=== PATIENT | male | born 1955 | race Caucasian/White ===

== ENCOUNTER 2016-09-11 03:03 | Inpatient (IN) | payer OTHER ==
[~2016-09-11] VITALS: Ht 193 cm; Wt 140.6 kg
[~2016-09-11 03:03] MED LIST: ATORVASTATIN CA40 M1 PO; LISINOPRIL20 M1 PO; ST. JOSEPH ASPI81 M1 PO; TOPROL XL25 M1 PO
--- NOTE | 2016-09-11 16:06 | Admission Core Measures ---
Admission Meds I reviewed the following Meds: Current Medications Sig/Vu Start time Last Medication Dose Stop Time Status Admin Acetaminophen 975 MG ONCE 09/11 0000 NR (Tylenol) 09/11 2358 Atorvastatin Calcium 40 MG DAILY 09/12 1000 UNVr (Lipitor) Cefazolin Sodium 3,000 MG ONCE 09/11 0000 NR (Kefzol-Ancef Inj) 09/11 235 Lisinopril 20 MG DAILY 09/12 1000 UNVr (Prinivil) Metoprolol Succinate 25 MG DAILY 09/12 1000 UNVr (Toprol XL) Oxycodone HCl 10 MG ONCE 09/11 0000 NR (Roxicodone) 09/11 235 Ropivacaine 500 ML ONCE ONE 09/11 1545 AC (NAROPIN) 09/13 0924 ON-Q Ball 1 BAG Acute Coronary Syndrome Inclusion Criteria ACS Diagnosis No Inpatient Core Measures LDL Reminder: If No, please order W/I first 24hr of stay Congestive Heart Failure Inclusion Criteria CHF Diagnosis No Cerebrovascular accident Inclusion Criteria CVA/TIA Diagnosis No Inpatient Core Measures Bedside Swallow Eval Reminder: If BSE failed, place ST order Antithrombotic Reminder: Order Antithrombotic Medication by end of day 2 Antithrombotic Reminder: Document Reason Antithrombotic Not ordered by end of day 2 AFIB/Flutter Reminder: If Present, add to problem list AFIB/Flutter Reminder: Order Anticoag Medication for pts with AFIB/Flutter Atherosclerosis Reminder: If Present, add to problem list LDL Reminder: If No, please order W/I first 24hr of stay PT Order Reminder: If No, please order Venous thromboembolism Inpatient Core Measures VTE Risk Factors: Surgery No [facility] VTE prophylaxis d/t No contraindications No VTE Pharm Prophylaxis d/t No contraindications Inclusion Criteria - Per Current guidelines, there needs to be overlap - treatment for the first 5 days of Warfarin therapy. - Parenteral Anticoagulation (IV or SC) needs to be - given along with Warfarin therapy. VTE Diagnosis No VTE Type NONE VTE Confirmed by (Test) NONE Problem List As ranked by this Provider includes Assessment & Plan 1. Unilateral primary osteoarthritis, right knee HOME MEDS Home Med List Aspirin ([place] Aspirin) 81 MG TABLET.DR 1 TAB PO D HEART [employer] ( Reported) Atorvastatin Calcium 40 MG TABLET 1 TAB PO DAILY CHOLESTEROL (Reported) Lisinopril 20 MG TABLET 1 TAB PO DAILY BP (Reported) Metoprolol Succ XL (Toprol XL) 25 MG TAB 1 TAB PO DAILY BP (Reported)
--- NOTE | 2016-09-11 16:32 | Operative Report ---
Operative/Inv Procedure Report Surgery Date: 09/11/16 Name of Procedure: 1. Right total knee replacement 2. Left knee cortisone injection Pre-Operative Diagnosis: Primary Bilateral knee DJD Post-Operative Diagnosis: Same Estimated Blood Loss: 50ml to 100ml Surgeon/Construction Plant Operator: ELOINA GARRISON,ERIKA Handley Anesthesia: block Operative/Procedure Note Note: Description of Procedure: The patient was taken to the operating room and positively identified. After induction of spinal anesthesia and administration of appropriate pre-operative antibiotics, the patient was positioned supine on the operating room table and all bony prominences were well padded. The left knee was prepped sterilely and injected with a mixture of 2 mL of Depo- Medrol and 8 mL of half percent Marcaine. A Band-Aid was placed over the injection site. Attention was then turned to the right lower extremity. A well-padded pneumatic tourniquet was placed on the right upper thigh. After performing a surgical timeout, the right lower extremity was prepped and draped in the usual sterile fashion. After exsanguination with Esmarch the tourniquet was inflated to 250mm of mercury. A standard medial parapatellar approach was made to the knee. This was carried down through skin and subcutaneous tissue to the level of the fascia. Meticulous hemostasis was maintained with Bovie electrocautery. The extensor mechanism and patellar retinaculum were opened sharply and the patella was everted. The infrapatellar fat was resected in order to improve exposure. Osteophytes were trimmed from the patella and femoral condyles and the patella was re-everted and tucked laterally. A medial release was performed and the cruciate ligaments were resected. The tibia was then subluxed anteriorly. Utilizing the appropriate extra-medullary guide, the proximal tibia was trimmed perpendicular to the long axis of the tibial shaft. Attention was then turned to the femur. After opening the medullary canal, the distal femoral cut was made in 6 degrees of valgus utilizing the appropriate intra-medullary guide. The extension gap was checked and found to be appropriate. The femur was then sized and the remainder of the femoral cuts were made with a size 6 4-in-1 femoral cutting guide. The flexion gap was checked and found to be symmetric and appropriate. The knee was then trialed with a size 6 femoral component, a size 7 tibial component and a size 9 mm polyethylene insert. The patella was trimmed to accept an A 38 patella. This yielded excellent range of motion, stability and patellar tracking. All trial components were removed and the knee was copiously irrigated with sterile saline. All components were cemented into place with Edgardo Simplex cement. All the components were of the [employer] Triathlon knee system of the above stated sizes. The knee was again irrigated after cementation. The extensor mechanism and patellar retinaculum were repaired using interrupted #1 vicryl suture. The skin was re-approximated with 2-0 vicryl and closed with lana. A sterile dressing was applied, the tourniquet was deflated, the patient was awakened and taken to the recovery room in satisfactory condition.
[2016-09-11 17:53] VITALS: BP 132/72
--- NOTE | 2016-09-11 18:00 | NUR ---
ARRIVED TO FLOOR VIA STRETCHER. A & O X 3. ON RA. VSS. C/O MILD PAIN 5/10 TO RIGHT KNEE BUT STATES HE FEELS SIGNIFICANT RELIEF SINCE INSERTION ON ON-Q PUMP. STATES PAIN IS TOLERABLE AND DENIES NEED FOR ADDITIONAL MEDICATIONS. POST OP DSG TO RLE C/D/I. ORIENTED TO CALL SYSTEM.
--- NOTE | 2016-09-11 18:07 | PN- Orthopedic ---
Subjective Subjective: POST-OP NOTE: Feels comfortable at the moment. Pain improves with medication. Not yet out of bed. Hasn't been seen by PT yet. Tolerating clears. No nausea. Eager to eat. Denies dizziness. No shortness of breath. No chest pains. Voided 500 mls in pacu. Objective Vital Signs and I&Os Vital Signs Date Time Temp Pulse Resp B/P B/P Pulse O2 O2 Flow FiO2 Mean Ox Delivery Rate 09/11 1753 94.1 65 18 132/72 95 Room Air Physical Exam: General - alert & oriented x 3. comfortable. no acute distress. Lungs - clear bilaterally. no w/r/r. Cardiac - s1s2. reg. Abdomen - soft. nontender. Extremities - right leg dressing c/d/i. on q in place. calves soft and nontender b/l. nvi. no drains. Current Medications: Current Medications Sig/Vu Start time Last Medication Dose Route Stop Time Status Admin Acetaminophen 650 MG Q4P PRN 09/11 1745 UNVr PO Acetaminophen 0 .STK-MED ONE 09/11 1217 DC PO Acetaminophen 975 MG ONCE 09/11 0000 DC PO 09/11 2359 Aspirin 325 MG BID 09/11 2200 UNVr PO Atorvastatin Calcium 40 MG 1700 09/12 1700 UNVr PO Atorvastatin Calcium 40 MG 1700 09/11 1700 DC PO Cefazolin Sodium 2 GM IQ8 09/11 1600 UNVr N/A 1 UNIT IV 09/12 0029 Cefazolin Sodium 3,000 MG ONCE 09/11 0000 DC IV 09/11 2359 Dextrose/Sodium 1,000 ML .[id number] 09/11 174 UNVr 09/11 Chloride IV 1806 Docusate Sodium 100 MG BID 09/11 2200 UNVr PO Hydromorphone HCl 2 MG Q4P PRN 09/11 1745 UNVr PO Hydromorphone HCl 4 MG Q4P PRN 09/11 1745 UNVr PO Ketorolac 15 MG Q8P PRN 09/11 1745 UNVr Tromethamine IV 09/14 174 Lisinopril 20 MG DAILY 09/12 1000 DC PO Lisinopril 20 MG DAILY 09/12 1000 AC PO Metoprolol Succinate 25 MG DAILY 09/12 1000 DC PO Metoprolol Succinate 25 MG DAILY 09/12 1000 AC PO Morphine Sulfate 2 MG Q2P PRN 09/11 1745 AC IV Omeprazole 20 MG DAILY AC 09/12 0700 AC PO Ondansetron HCl 4 MG Q6P PRN 09/11 1745 AC IV Oxycodone HCl 0 .STK-MED ONE 09/11 1217 DC PO Oxycodone HCl 10 MG ONCE 09/11 0000 DC PO 09/11 2359 Polyethylene Glycol 17 GM DAILY 09/12 1000 AC PO Promethazine HCl 12.5 MG Q6P PRN 09/11 1745 AC IV 09/18 1559 Ropivacaine 500 ML ONCE ONE 09/11 1545 DC ON-Q Ball 1 BAG INJ 09/13 0924 Assessment/Plan Assessment/Plan This 61 year old male with hx htn and hld is POD#0 s/p right total knee replacementt, left knee cortisone injection for primary bilateral knee DJD advance diet as tolerated pain control as ordered jorge l-operative ancef x 2 asa bid PT eval in am home meds re-ordered, including beta jose antonio f/u am labs dressing change post-op day#2 will d/w Core Measures/Miscellaneous Venous Thromboembolism VTE Risk Factors: Age > 40, Surgery VTE Contraindications: No Contraindications VTE Diagnosis: No VTE Type: NONE VTE Confirmed by (Test): NONE Beta Jose Antonio Is Beta Jose Antonio a Home Med? Yes If Yes, Was This Ordered Today? Yes Antibiotics Is Patient on Antibiotics? Yes If Yes: prophylaxis
[2016-09-11 20:00] VITALS: BP 138/72
[2016-09-11] MEDS ORDERED: COLACE100 M1 PO (20:16)
[2016-09-11] MEDS ORDERED: MS CONTIN30 M1 PO (20:16)
[2016-09-11] MEDS ORDERED: ASPIRIN EC325 M2 PO (20:16)
[2016-09-11] MEDS ORDERED: MIRALAX17 G1 PO (20:16)
[2016-09-11] MEDS ORDERED: DILAUDID2 M1 PO (20:16)
--- NOTE | 2016-09-11 20:21 | Patient Discharge Instructions ---
Discharge Instructions General Discharge Information You were seen/treated for: Primary Bilateral knee DJD You had these procedures: Right total knee replacement, Left knee cortisone injection Watch for these problems: fever>101.3, increased pain, redness/swelling/drainage, shortness of breath, chest pain, dizziness Do not soak the wound: Yes No bath, but you may shower: Yes Other wound care: see pre-printed sheet Diet Continue normal diet: Yes Recommended Diet: Regular Activity Activity Self Limited: Yes Activity Limited to: Weight bear as tolerated Other activity limits: Rolling walker assistance as needed. Continue PT. Acute Coronary Syndrome Inclusion Criteria At DC or during hospital stay patient has or had the following: ACS DIAGNOSIS No Discharge Core Measures Meds if any: Prescribed or Continued at Discharge Meds if any: NOT Prescribed or Continued at Discharge Congestive Heart Failure Inclusion Criteria At DC or during hospital stay patient has or had the following: CHF DIAGNOSIS No Discharge Core Measures Meds if any: Prescribed or Continued at Discharge Meds if any: NOT Prescribed or Continued at Discharge Cerebrovascular accident Inclusion Criteria At DC or during hospital stay patient has or had the following: CVA/TIA Diagnosis No Discharge Core Measures Meds if any: Prescribed or Continued at Discharge Meds if any: NOT Prescribed or Continued at Discharge Venous thromboembolism Inclusion Criteria VTE Diagnosis No VTE Type NONE VTE Confirmed by (Test) NONE Discharge Core Measures - Per Current guidelines, there needs to be overlap - treatment for the first 5 days of Warfarin therapy. - If discharged on Warfarin prior to 5 days of - overlap therapy, the patient will need to be - assessed for post discharge needs including - *Post discharge parental anticoagulation - *Warfarin and/or parental anticoagulation education - *Follow up date to check INR post discharge At least 5 days overlap therapy as Inpatient No Meds if any: Prescribed or Continued at Discharge Note: Overlap Therapy is Warfarin and Anticoagulant Meds if any: NOT Prescribed or Continued at Discharge
--- NOTE | 2016-09-11 20:26 | Surgical Discharge Summary ---
Visit Information Visit Dates Admission Date: 09/11/16 Discharge Date: 09/13/16 History of Present Illness Chief Complaint: Bilateral knee pain, osteoarthritis Medical History Blood Transfusion Hx: No Neurological: NONE EENT: NONE Cardiovascular: CAD, hypertension, hyperlipidemia Respiratory: obstructive sleep apnea Gastrointestinal: NONE Hepatic: NONE Renal: NONE Musculoskeletal: osteoarthritis Psychiatric: NONE Endocrine: NONE Blood Disorders: NONE Cancer(s): NONE FOCUSER/Reproductive: NONE Isolation History: Standard Surgical History Pertinent Surgical History: CARDIAC STENT, KNEE SURGERY, TONSILECTOMY, APPENDECTOMY Psychosocial History Where Do You Live? Home Who Do You Live With? Patient/Self What is Your Primary Language? Moroccan Review of Systems: see H&P Hospital Course Course Attending Physician: ERIKA DUVALL MD Primary Care Physician: ANIYAH PANDEY MD Hospital Course: Patient was admitted to the hospital for an elective total joint replacement. Procedure was tolerated well and patient was transferred to a general surgical floor. Diet was advanced and tolerated and patient voided spontaneously. PT evaluated and treated. At time of discharge, vital signs were stable and within normal limits, neurovascular status was intact, and pain was controlled with oral pain medications. Allergies: Coded Allergies: No Known Allergies (09/05/16) Disposition Summary Disposition Principal Diagnosis: Primary Bilateral knee DJD Additional Diagnosis: same s/p Right total knee replacement s/p Left knee cortisone injection Discharge Disposition: home health services Discharge Instructions General Discharge Information Code Status: Full Code Patient's Diet: regular Patient's Activity: weight bearing as tolerated. rolling walker assistance as needed. Follow-Up Instructions/Appts: Follow up with Dr. Duvall in 6 weeks from date of surgery, contact office to arrange/confirm this appointment Medications at Discharge Discharge Medications: Stop taking the following medications: Aspirin ([place] Aspirin) 81 MG TABLET.DR CARDONA Every Day Continue taking these medications: Metoprolol Succ XL (Toprol XL) 25 MG TAB 1 Tablet ORAL DAILY Comments: Last Taken: 09/13/16 Time: 10:00 AM Lisinopril (Lisinopril) 20 MG TABLET 1 Tablet ORAL DAILY Comments: Last Taken: 09/13/16 Time: 10:00 AM Atorvastatin Calcium (Atorvastatin Calcium) 40 MG TABLET 1 Tablet ORAL DAILY Comments: Last Taken: 09/12/16 Time: 5:00 PM Start taking the following new medications: Aspirin (Ecotrin*) 325 MG TABLET. 1 Tablet ORAL TWICE DAILY Qty = 60 No Refills Comments: Last Taken: 09/13/16 Time: 10:00 AM Docusate Sodium (Colace) 100 MG CAPSULE 1 Capsule ORAL TWICE DAILY Days = 7 No Refills Instructions: STOP TAKING IF YOU DEVELOP LOOSE STOOL/DIARRHEA Comments: Last Taken: 09/13/16 Time: 10:00 AM Polyethylene Glycol 3350 (Miralax) 17 GRAM POWD.PACK 1 Packet ORAL DAILY Days = 7 No Refills Instructions: dissolve in water. STOP TAKING IF YOU DEVELOP LOOSE STOOL/DIARRHEA Comments: Last Taken: 09/13/16 Time: 10:00 AM Morphine Sulfate (Ms Contin) 30 MG TABLET.ER 1 Tablet ORAL TWICE DAILY Qty = 6 No Refills Comments: NOT TAKEN IN HOSPTIAL Hydromorphone HCl (Dilaudid) 2 MG TABLET 1-2 Tablet ORAL EVERY 4-6 HOURS NEEDED as needed for PAIN Qty = 36 No Refills Comments: NOT TAKEN IN HOSPITAL
[2016-09-11 22:00] VITALS: BP 144/80
[2016-09-11 23:54] VITALS: BP 112/70
[2016-09-12 04:00] VITALS: BP 132/80
--- NOTE | 2016-09-12 08:19 | PN- Orthopedic ---
Subjective Subjective: No acute overnight events reported. Patient is presently without pain to surgical site. Denies chest pain, shortness of breath and difficulty breathing. Denies nausea and vomitting. Has been voiding. Has yet to ambulate. Objective Vital Signs and I&Os Vital Signs Date Time Temp Pulse Resp B/P B/P Pulse O2 O2 Flow FiO2 Mean Ox Delivery Rate 09/12 0400 98.4 75 20 132/80 96 CPAP / 2354 98.0 75 20 112/70 97 CPAP / 2200 98.2 76 20 144/80 94 Room Air 09/11 2058 Room Air Room Air 09/12 1999 97.8 73 20 138/72 94 Room Air / 1753 94.1 65 18 132/72 95 Room Air Intake & Output 09/12 1600 09/12 0800 / 0000 09/11 1600 09/11 0800 06/ 0000 Intake Total 700 450 Output Total 1000 1100 Balance -300 -650 Intake, IV 600 350 Intake, Oral 100 100 Number 0 Bowel Movements Output, Urine 1000 1100 Patient 310 lb Weight Weight Reported by Patient Measurement Method Physical Exam: General: Alert and oriented x3, no acute distress Cardiac: RRR, s1s2 Pulm: CTA bilaterally, incentive spirometer volume 4000 Abdomen: NOn-tender, non-distended Extremties: Moves all extremities, distal sensation intact. Motor 5/5 in plantar and dorsi flexion. Skin warm and well perfused. DP pulses palpable. Bilateral calves soft and non-tendre Assessment/Plan Assessment/Plan This is a 61 year old male, POD 1, s/p R TKR, doing well -OOB with pt first today. Assess quad function. May need knee immbolizer for standing/ambulation, can wbat -D/C iv fluids -Continue diet as tolerated -Continue current pain regimen, it does not appear that patient has required pain medication yet, recommend starting to administer pain meds 12 hours prior to d/c on q -Continue home meds -ASA 325 bid for dvt ppx, ALPS in house, TEDS at discharge -Will d/w Dr. Ramirez Core Measures/Miscellaneous Venous Thromboembolism VTE Risk Factors: Age > 40, Surgery VTE Contraindications: No Contraindications VTE Diagnosis: No VTE Type: NONE VTE Confirmed by (Test): NONE Beta Jose Antonio Is Beta Jose Antonio a Home Med? Yes If Yes, Was This Ordered Today? Yes Antibiotics Is Patient on Antibiotics? Yes If Yes: prophylaxis
[2016-09-12 08:26] LABS: ABSOLUTE BASOPHIL COUNT 0 /CUMM (0.0-0.2); ABSOLUTE EOSINOPHIL COUNT 0 /CUMM (0.0-0.7); ABSOLUTE LYMPH COUNT 0.7 /CUMM (1.2-3.4); BASOPHIL % 0 % (0.0-2.0); EOSINOPHIL % 0 % (0-5); GRANULOCYTE % 88.5 % (42.2-75.2); HEMATOCRIT 37.7 % (42-52); MEAN CORPUSCULAR HGB 30.1 PG (27.0-31.0); MEAN CORPUSCULAR HGB CONC 33.5 G/DL (33.0-37.0); PLATELET COUNT 192 /CUMM (130-400); RBC DISTRIBUTION WIDTH 13.6 % (11.5-14.5); RED BLOOD CELL CT 4.19 /CUMM (4.70-6.10); WHITE BLOOD CELL COUNT 14.6 /CUMM (4.8-10.8)
[2016-09-12 15:43] VITALS: BP 120/60
[2016-09-12 16:30] VITALS: BP 122/70
[2016-09-12 18:49] VITALS: BP 134/80
[2016-09-12 20:32] VITALS: BP 118/70
[2016-09-12 22:30] VITALS: BP 124/60
[2016-09-13 06:35] VITALS: BP 118/62
--- NOTE | 2016-09-13 07:51 | PN- Orthopedic ---
Subjective Subjective: POD#2 S/P RIGHT TKA NO MAJOR ISSUES OVERNIGHT JOSE FRANCISCOS CP, SOB, NO N+V WITH DIET DOING WELL WITH PT HOME D/C PLANNING Objective Vital Signs and I&Os Vital Signs Date Time Temp Pulse Resp B/P B/P Pulse O2 O2 Flow FiO2 Mean Ox Delivery Rate / 0635 98.4 71 20 118/62 95 Room Air 06/08 2230 98.6 75 20 124/60 96 Room Air 06/08 2032 98.8 78 20 118/70 94 Room Air 06/08 1849 99.3 74 20 134/80 96 Room Air 06/08 1630 98.3 67 20 122/70 95 Room Air 06/08 1543 98.6 68 20 120/60 94 06/08 0854 75 132/80 06/08 0854 75 132/80 Intake & Output 06/ 0800 06/09 0000 06/08 1600 06/08 0800 06/08 0000 06/07 1600 Intake Total 450 1175 700 450 Output Total 250 1750 1400 1000 1100 Balance -250 -1300 -225 -300 -650 Intake, IV 75 600 350 Intake, Oral 450 1100 100 100 Number 0 0 Bowel Movements Output, Urine 250 1750 1400 1000 1100 Patient 310 lb Weight Weight Reported by Patient Measurement Method Physical Exam: CV: RRR LUNGS: CLEAR ABD: SOFT, +BS EXT: DRSG CHANGED, WOUND C/D/I NO CALF TENDERNESS BILAT DISTAL CMS INTACT Assessment/Plan Assessment/Plan ORTHO STABLE PLAN CONT OOB WITH PT/STAIRS ASA FRO DVT PROPHYLAXIS D/C HOME TODAY AFTER PT CLEARANCE Core Measures/Miscellaneous Venous Thromboembolism VTE Risk Factors: Age > 40, Surgery VTE Contraindications: No Contraindications VTE Diagnosis: No VTE Type: NONE VTE Confirmed by (Test): NONE Beta Jose Antonio Is Beta Jose Antonio a Home Med? Yes If Yes, Was This Ordered Today? Yes Antibiotics Is Patient on Antibiotics? Yes If Yes: prophylaxis
[2016-09-13 14:34] VITALS: BP 130/70
== END 2016-09-13 15:00 | disposition home health service (06) | DRG 470 ==
LOC: SDA 03:03 → ENRESERV 16:57 → ENTRNSPT 17:10 → 2NA 17:41 → CMPTRNSPT 17:52 → ENPENDDIS 09-13 08:45 → 2NA 09-13 15:00
PROVIDERS: Physician Assistant Surgical; ADMIT Orthopaedic Surgery
PROC: 3E0U33Z Introduction of Anti-inflammatory into Joints, Percutaneous Approach (ICD-10-PCS; principal; 2016-09-11)
PROC: 0SRC0J9 Replacement of Right Knee Joint with Synthetic Substitute, Cemented, Open Approach (ICD-10-PCS; principal; 2016-09-11)
PROC: 3E0U3BZ Introduction of Anesthetic Agent into Joints, Percutaneous Approach (ICD-10-PCS; principal; 2016-09-11)
PROC: 3E0T3BZ Introduction of Anesthetic Agent into Peripheral Nerves and Plexi, Percutaneous Approach (ICD-10-PCS; 2016-09-11)
DX: M17.0 Bilateral primary osteoarthritis of knee (principal); I10 Essential (primary) hypertension; E66.9 Obesity, unspecified; Z68.37 Body mass index [BMI] 37.0-37.9, adult; I25.10 Atherosclerotic heart disease of native coronary artery without angina pectoris; Z95.5 Presence of coronary angioplasty implant and graft; G47.33 Obstructive sleep apnea (adult) (pediatric); E78.5 Hyperlipidemia, unspecified
CPT/HCPCS: 2NASP; 36415; 82436; 88305; 97110-GO; 97116-GO; 97161-GP; 97530-GO; 97535-GO; C1713; J0690; J2405; J2550; J2795; J7042